=== PATIENT | female | born 1950 | race Caucasian/White ===

== ENCOUNTER 2020-10-21 12:42 | Emergency (ER) | payer MEDICARE, BC ==
[~2020-10-21] VITALS: Ht 160 cm; Wt 65.9 kg
[2020-10-21 13:20] LABS: BASO % 0.5 % (0.0-1.0); EOS # 0.1 10^3/uL (0.0-0.5); EOS % 1.9 % (0.0-3.0); HEMATOCRIT 43.9 % (36.0-47.0); HEMOGLOBIN 14.6 g/dl (12.0-15.5); LYMPH # 1.6 10^3/uL (1.5-5.0); LYMPH % 21.1 % (24.0-44.0); MEAN CORPUSCULAR HEMOGLOBIN 31.7 pg (27.0-33.0); MEAN CORPUSCULAR HGB CONC 33.3 g/dl (32.0-36.5); MEAN CORPUSCULAR VOLUME 95.2 fl (80.0-96.0); MONO # 0.4 10^3/uL (0.0-0.8); MONO % 5.3 % (2.0-8.0); NEUTROPHILS # 5.4 10^3/uL (1.5-8.5); NEUTROPHILS % 71.1 % (36.0-66.0); PLATELET COUNT, AUTOMATED 257 10^3/uL (150-450); RED BLOOD COUNT 4.61 10^6/uL (4.00-5.40); WHITE BLOOD COUNT 7.5 10^3/uL (4.0-10.0)
[2020-10-21 13:43] LABS: ALBUMIN 4.1 GM/DL (3.2-5.2); BILIRUBIN,DIRECT 0.2 MG/DL (0.0-0.2); BILIRUBIN,TOTAL 0.6 MG/DL (0.2-1.0); TOTAL PROTEIN 7.8 GM/DL (6.4-8.2)
[2020-10-21] MEDS ORDERED: ONDANSETRON 4MG/2ML VIAL IV ONE (13:45)
[2020-10-21] MEDS ORDERED: MORPHINE 2 MG/ML 1ML VIAL (J2270) IV ONE ×2 (13:45→14:50)
--- NOTE | 2020-10-21 15:01 | REP ---
INDICATION: RUQ pain. COMPARISON: None. TECHNIQUE: Right upper quadrant sonography. FINDINGS: Scanning through the right upper quadrant of the abdomen demonstrates a normal sized, thin-walled gallbladder without evidence of stone or polyp. There are a few specular echogenic foci on the gallbladder wall generating ring down artifact. This may indicate mild adenomyomatosis of the gallbladder wall. No mass or polyp is seen. Common bile duct is normal measuring 0.4 cm in greatest diameter. No focal liver lesion is seen. Liver size is normal. No pancreatic abnormality is observed. No right renal abnormality is seen. There is no evidence of ascites. The right kidney measures 11.4 x 4.8 x 5.3 cm. The right kidney shows an extrarenal pelvis configuration. No hydronephrosis. IMPRESSION: Question mild adenomyomatosis of the gallbladder wall. Otherwise negative right upper quadrant sonography.. <Electronically signed by Kris Pat > 10/21/20 5211
[2020-10-21] MEDS ORDERED: ISOVUE-370 76% 100ML VIAL As Ordered ONE (15:21)
--- NOTE | 2020-10-21 15:39 | REP ---
INDICATION: upper abdominal pain. COMPARISON: None. TECHNIQUE: Helical scanning was acquired and 4 mm axial images are re-formatted. Coronal and sagittal MPR images were generated and reviewed. The contrast enhancement dose is 100 mL of intravenous Isovue 370. FINDINGS: Digital preliminary hand cultivator radiograph is unremarkable. Bowel gas pattern is normal. Axial CT images demonstrate platelike atelectasis in the lingula at the left lung base. Lung bases are otherwise clear. No pleural effusion or upper abdominal ascites is seen. The liver and the spleen are normal in size homogeneous in texture. Normal adrenal glands are observed bilaterally. No abnormality is noted in the gallbladder. The pancreas is unremarkable. The kidneys enhance symmetrically and are morphologically intact. Tortuous normal caliber abdominal aorta is seen. No retroperitoneal mass or adenopathy is observed. A normal appendix is seen in the right superior pelvis. The uterus is retroverted retroflexed but unremarkable. Urinary bladder and ovaries are unremarkable. No pelvic mass or adenopathy is seen. No abdominal wall defect is observed. Bone window settings show mild degenerative spondylosis changes in the lumbar spine. No acute bony abnormality is seen. IMPRESSION: No acute abdominal or pelvic abnormality. <Electronically signed by Kris Pat > 10/21/20 [id number]
[2020-10-21] MEDS ORDERED: GI COCKTAIL 50ML BTL(HYOSCYAMINE/MAALOX/LIDOCAINE VISCOUS)(1:3:1) PO ONE (16:15)
[2020-10-21] MEDS ORDERED: HYDR-3713 PO (17:19)
[2020-10-21] MEDS ORDERED: ONDA4TAB6 PO (17:19)
[2020-10-21] MEDS ORDERED: HYDR-3715 PO (17:23)
[2020-10-21 17:32] VITALS: BP 165/70
[2020-10-21] MEDS ORDERED: NORCO 5/325MG TABLET (BULK FOR ED) PO ONE (17:50)
[2020-10-21] MEDS ORDERED: ONDANSETRON 4 MG ORAL DISINTEGRATING TAB PO ONE (17:50)
== END 2020-10-21 17:57 | disposition home or self-care (01) ==
LOC: M ED 12:42
DX: K82.8 Other specified diseases of gallbladder (principal)
CPT/HCPCS: 74177; 76705; 80047; 80076; 83690; 85025; 96374; 96375; 96376; 99285; J2270; J2405; Q0162; Q9967

== ENCOUNTER 2024-04-14 20:16 | Emergency (ER) | payer MEDICARE, BC ==
[~2024-04-14] VITALS: Ht 160 cm; Wt 63.8 kg
[~2024-04-14 20:16] MED LIST: HYDR-3713 PO; HYDR-3715 PO; ONDA-282 PO
[2024-04-14] MEDS: GLUCAGON INJ 1MG VIAL IV STA (20:44)
[2024-04-14 21:12] LABS: BASO # 0.1 10^3/uL (0.0-0.2); BASO % 0.7 % (0.0-1.0); EOS # 0.4 10^3/uL (0.0-0.5); EOS % 5.1 % (0.0-3.0); HEMATOCRIT 40.9 % (36.0-47.0); HEMOGLOBIN 14.2 g/dl (12.0-15.5); LYMPH # 3.6 10^3/uL (1.5-5.0); LYMPH % 44.9 % (24.0-44.0); MEAN CORPUSCULAR HEMOGLOBIN 32.7 pg (27.0-33.0); MEAN CORPUSCULAR HGB CONC 34.7 g/dl (32.0-36.5); MEAN CORPUSCULAR VOLUME 94.2 fl (80.0-96.0); MONO # 0.5 10^3/uL (0.0-0.8); MONO % 6.3 % (2.0-8.0); NEUTROPHILS # 3.5 10^3/uL (1.5-8.5); NEUTROPHILS % 42.8 % (36.0-66.0); PLATELET COUNT, AUTOMATED 281 10^3/uL (150-450); RED BLOOD COUNT 4.34 10^6/uL (4.00-5.40); WHITE BLOOD COUNT 8.1 10^3/uL (4.0-10.0)
[2024-04-14 21:26] LABS: BLOOD UREA NITROGEN 17 MG/DL (9-23); CALCIUM LEVEL 10.2 MG/DL (8.3-10.6); CARBON DIOXIDE LEVEL 24 MMOL/L (20-31); CHLORIDE LEVEL 107 MMOL/L (98-107); CREATININE FOR GFR 0.74 MG/DL (0.55-1.30); GLOMERULAR FILTRATION RATE > 60.0 (>39); GLUCOSE, FASTING 125 MG/DL (74-106); POTASSIUM SERUM 3.9 MMOL/L (3.5-5.1); SODIUM LEVEL 141 MMOL/L (136-145)
[2024-04-15 00:05] VITALS: BP 166/83; TEMP 98.3; O2SAT 99
== END 2024-04-15 00:06 | disposition short-term general hospital (02) ==
LOC: M ED 20:16
DX: T18.128A Food in esophagus causing other injury, initial encounter (principal)
CPT/HCPCS: 80048; 85025; 96374; 99284; J1610